=== PATIENT | female | born 1960 | race Caucasian/White ===

== ENCOUNTER 2017-12-06 20:14 | Emergency (ER) | payer OTHER, SELFPAY ==
[2017-12-06] VITALS (9 sets, daily range): BP systolic 87–116; BP diastolic 51–57; PULSE 53–70; RESP 8–18; TEMP 36.6; O2SAT 95–98
--- NOTE | 2017-12-06 20:37 | DI.RPTCT_ITS ---
SYMPTOM/DIAGNOSIS: FALL FROM HORSE NONCONTRAST HEAD CT: No intracranial hemorrhage or skull fracture is seen. The ventricles are normal in size. The mastoid air cells appear clear IMPRESSION: Negative head CT. CT CERVICAL SPINE: There is no evidence of fracture. There is some straightening of the normal cervical lordosis which could be secondary to patient positioning or muscle spasm. There is no paraspinal hematoma. The airway appears intact. IMPRESSION: Negative CT of the cervical spine. FACIAL CT: There is an air fluid level in the right maxillary sinus. No surrounding fractures are seen. The findings could indicate sinusitis. There is no bony erosion. The remaining sinuses appear lear. The orbits and mastoid air cells appear intact. There is no temporomandibular joint dislocation,. IMPRESSION: Right maxillary sinus disease. No evidence of facial fracture.
--- NOTE | 2017-12-06 20:40 | DI.REPORT_ITS ---
SYMPTOM/DIAGNOSIS: FALL FROM HORSE PELVIS AND LEFT HIP: No fracture or dislocation is seen. There is mild bilateral acetabular spurring. The acetabula appear mildly shallow bilaterally. The S-I joints and pubic symphysis appear intact. The sacrum is partially obscured by overlying stool and bowel gas. IMPRESSION: No acute abnormality.
--- NOTE | 2017-12-06 20:40 | DI.REPORT_ITS ---
SYMPTOM/DIAGNOSIS: FALL FROM HORSE LEFT ELBOW: There is soft tissue swelling seen posterior to the proximal ulna. No fracture is identified. IMPRESSION: Posterior soft tissue swelling. LEFT FOREARM: Soft tissue swelling is noted posterior to the proximal ulna. There is a fixation plate in the distal radius. No acute fracture is identified.
[2017-12-06] MEDS: Ondansetron O.D.T. 4 MG TABEF (20:53)
--- NOTE | 2017-12-06 21:14 | DI.RPTCT_ITS ---
SYMPTOM/DIAGNOSIS: FALL FROM HORSE, TRAUMA. CT CHEST, ABDOMEN AND PELVIS: Comparison is made with pelvic ultrasound dated 02 May 2006. Images were performed from the clavicles through the ischial tuberosities after IV and without oral contrast. CHEST CT: The heart and great vessels appear intact. The lungs appear clear. No pneumothorax is seen. No rib or spine fracture is identified. IMPRESSION: Negative Chest CT ABDOMEN AND PELVIC CT: The liver, spleen, pancreas, kidneys, adrenals and gallbladder appear normal. There is no free air or free flui. The bladder is intact. The appendix appears normal. No spine or pelvic fractures are seen. There is a soft tissue hematoma in the lateral left hip. The uterus is enlarged and retroverted. Fibroids were demonstrated on prior ultrasound. There is an area of enhancement on the right side of the uterus which could represent a fibroid. The right ovary appears normal. The left ovary is not well seen due to adjacent non opacified loops of small bowel. IMPRESSION: Soft tissue hematoma in the lateral left hip. No acute intra- abdominal abnormality. Enlarged uterus with fibroids. A pelvic ultrasound could be performed for further evaluation if clinically warranted.
[2017-12-06] MEDS: Normal Saline 1,000 ML 1000 ML IV (22:05)
--- NOTE | 2017-12-06 22:05 | DI.VRAD_ITS ---
EXAM: CT Maxillofacial Without Intravenous Contrast EXAM DATE/TIME: 12/06/2017 9:02 PM CLINICAL HISTORY: 57 years old, female; Injury or trauma; Fall; Initial encounter; Blunt trauma (contusions or hematomas); Eyelid; Not specified TECHNIQUE: Axial computed tomography images of the face without intravenous contrast. Coronal and sagittal reformatted images were created and reviewed. COMPARISON: No relevant prior studies available. FINDINGS: Bones/joints: No acute fracture. Soft tissues: Normal. Orbits: Normal. Globes are unremarkable. Sinuses: Mucosal thickening of the left maxillary sinus with fluid level. IMPRESSION: No acute fracture. Mucosal thickening of the left maxillary sinus with fluid level. Clinical correlation with acute sinusitis. EXAM: CT Head Without Intravenous Contrast EXAM DATE/TIME: 12/06/2017 9:02 PM CLINICAL HISTORY: 57 years old, female; Injury or trauma; Fall; Initial encounter; Blunt trauma (contusions or hematomas); Eyelid; Not specified TECHNIQUE: Axial computed tomography images of the head/brain without intravenous contrast. Coronal and sagittal reformatted images were created and reviewed. COMPARISON: No relevant prior studies available. FINDINGS: Brain: Normal. No hemorrhage. No significant white matter disease. No edema. Ventricles: Normal. No ventriculomegaly. Bones/joints: Normal. No acute fracture. Sinuses: Fluid level in the left maxillary sinus. Mastoid air cells: Normal as visualized. No mastoid effusion. Soft tissues: Normal. IMPRESSION: No acute intracranial abnormality. EXAM: CT Cervical Spine Without Intravenous Contrast EXAM DATE/TIME: 12/06/2017 9:02 PM CLINICAL HISTORY: 57 years old, female; Injury or trauma; Fall; Initial encounter; Blunt trauma (contusions or hematomas); Eyelid; Not specified TECHNIQUE: Axial computed tomography images of the cervical spine without intravenous contrast. Coronal and sagittal reformatted images were created and reviewed. COMPARISON: No relevant prior studies available. FINDINGS: Vertebrae: Straightening of the cervical spine. Discs/Spinal canal/Neural foramina: No spinal stenosis. No neural foraminal narrowing. Soft tissues: Unremarkable. Lung apices: Normal. IMPRESSION: No acute fracture or spondylolisthesis. Dictated and Authenticated by: Liban Trinh MD. Ordering:YOMI SARAVIA MD
[2017-12-06 22:09] LABS: Abs Immature Grans 0.01 k/cumm (0.0-0.09); Absolute Basophil Count 0.02 k/cumm (0.0-0.2); Absolute Eosinophil Count 0.01 k/cumm (0.0-0.7); Absolute Lymphocyte Count 1.07 k/cumm (1.2-3.4); Absolute Monocyte Count 0.79 k/cumm (0.11-0.7); Basophils % 0.2; Eosinophils % 0.1; HCT 33.5 % (36.0-46.0); HGB 11.5 g/dL (12.0-15.5); Immature Grans % 0.1; Lymphocytes % 10.4; Mean Corp. HGB Concentration 34.3 g/dL (32.0-36.0); Mean Corpuscular Hemoglobin 30.9 pg (27.0-33.0); Mean Corpuscular Volume 90.1 fL (80-95); Mean Platelet Volume 9.9 fL (8.0-11.0); Monocytes % 7.7; Neutrophils % 81.5; Platelet Count 238 x1000/uL (130-400); RBC 3.72 m/cumm (4.00-5.20)
--- NOTE | 2017-12-06 22:09 | DI.VRAD_ITS ---
EXAM: XR Left Forearm, 2 Views EXAM DATE/TIME: 12/06/2017 8:42 PM CLINICAL HISTORY: 57 years old, female; Injury or trauma; Fall; Initial encounter; Blunt trauma (contusions or hematomas; Elbow; Left TECHNIQUE: XR Left forearm 2 views. COMPARISON: No relevant prior studies available. FINDINGS: Bones/joints: Status post fixation with metallic plate and pins of the distal radial diaphyseal fracture. No acute fracture. Soft tissues: Soft tissue edema and hematoma of the proximal forearm. IMPRESSION: 1. No acute fracture. 2. Soft tissue edema/hematoma of the proximal forearm. 3. Status post fixation of the distal radial fracture with metallic plate and pins without evidence for hardware loosening or fracture. Dictated and Authenticated by: Liban Trinh MD. Ordering:YOMI SARAVIA MD
--- NOTE | 2017-12-06 22:13 | ED.GENADUL ---
Medical Decision Making - Lab Data Laboratory Tests 12/06/17 21:50 WBC 10.30 RBC 3.72 L Hgb 11.5 L Hct 33.5 L MCV 90.1 MCH 30.9 MCHC 34.3 RDW 12.0 Plt Count 238 MPV 9.9 Immature Gran % 0.1 Neutrophils % 81.5 Lymphocytes % 10.4 Monocytes % 7.7 Eosinophils % 0.1 Basophils % 0.2 Absolute Neutrophils 8.40 H Absolute Lymphocytes 1.07 L Absolute Monocytes 0.79 H Absolute Eosinophils 0.01 Absolute Basophils 0.02 Results reviewed for labs ordered during visit: Yes - Radiology Data Radiology results: pending, report reviewed, image reviewed - Medical Decision Making Patient presenting to the emergency department status post fall from a horse at rapid speed. Patient was helmeted but is having some dizziness and nausea and vomiting. Patient also does have ecchymosis and tenderness to the left orbit. Patient has tenderness swelling and ecchymosis to left elbow and left forearm along with left hip and proximal femur. Palpation of abdomen shows exquisite tenderness to palpation of left lower quadrant. Patient states worsening dizziness with standing up. Given mechanism of injury I do feel that this is a serious trauma and requires head neck and facial CT along with plain film imaging of the left elbow, forearm, left hip and CT imaging of the chest abdomen pelvis. Patient is stable to wait for contrasted imaging of the chest abdomen pelvis but I do feel that it is emergent for patient to have head CT without contrast but otherwise we can wait for labs to check GFR before CT imaging chest abdomen pelvis. Patient offered pain medication and states that she is comfortable but only has exquisite pain and discomfort with movement specifically of the left hip more than anywhere else. Physical exam is unremarkable for any focal neurological deficits or cranial nerve deficits. We will continue to monitor patient's condition. Initial review of CT imaging of the head neck face, left elbow, left forearm, and left hip shows no acute fracture and mostly soft tissue swelling. After review of labs patient has stable labs to go for Ct chest abdomen pelvis. Pending results of CT [facility] patient was transferred to Dr. Davis for final disposition, follow-up, and further treatment or stabilization as needed. History of Present Illness - General Chief complaint: Dizzy/Sync Stated complaint: FELL OFF HORSE, CONCUSSION Time Seen by Provider: 12/06/17 20:16 Source: patient, RN notes reviewed Mode of arrival: ambulatory Limitations: no limitations - History of Present Illness Initial comments: Patient reports around 5 PM she was riding her horse at a high rate of speed when she fell off her horse landing on her left side. Initially she just thought these were mostly bumps and bruises but over the course of time she has had worsening pain of her left elbow/forearm, left hip and pelvis to the point of not being able to stand or bear much weight, and mild headache. Right after the initial fall she did take some Motrin for pain control. Around 7 PM she does state that she attempted to eat some dinner and started having significant amount of dizziness and vomited once and since has felt unwell. Patient denies any loss of consciousness and states that she was helmeted during the event and remembers the entire event. Onset/Timin -: hour(s) Location: left, upper extremity, lower extremity Severity scale (1-10): 7 Quality: sharp Consistency: constant Improves with: rest Worsens with: movement Associated Symptoms: denies other symptoms Treatments Prior to Arrival: NSAID - Related Data Unknown [No Known Home Meds] 12/06/17 Allergies Allergy/AdvReac Type Severity Reaction Status Date / Time Penicillins Allergy Intermediate Hives Unverified 12/06/17 20:41 Review of Systems Constitutional: denies: chills, fever, malaise Eyes: denies: vision change ENT: denies: ear pain Respiratory: denies: shortness of breath Cardiovascular: denies: chest pain, syncope Gastrointestinal: abdominal pain, nausea, vomiting. denies: diarrhea, constipation Genitourinary: denies: dysuria, hematuria Musculoskeletal: as per HPI Skin: change in color (Some bruising on the left side of her body) Neurological: headache, vertigo. denies: weakness, numbness, paresthesias, confusion, abnormal gait Past Medical History - Past Medical History Anemia Surgical history: other (Left wrist surgery) - Social History Smoking status: never smoker Alcohol use: rarely. denies: recent Drug use: none Living Situation: lives with family General Exam - General Limitations: no limitations General appearance: alert, in no apparent distress - Head Head exam: Present: normocephalic - Expanded Head Exam No standard instances Head exam: Present: tenderness of temporal artery (Mild to left ). Absent: abrasion, patel's sign, CSF rhinorrhea, CSF otorrhea - Eye Eye exam: Present: PERRL, EOMI, periorbital swelling (Left orbit with mild ecchymosis), periorbital tenderness (Left orbit) Pupils: Present: normal accommodation - ENT ENT exam: Present: normal orophraynx, mucous membranes moist, TM's normal bilaterally, normal external ear exam - Neck Neck exam: Present: normal inspection, full ROM. Absent: tenderness - Respiratory Respiratory exam: Present: normal lung sounds bilaterally. Absent: respiratory distress, wheezes, rales, rhonchi, stridor - Cardiovascular Cardiovascular Exam: Present: regular rate, normal rhythm, normal heart sounds. Absent: bradycardia, tachycardia, systolic murmur, diastolic murmur, rubs, gallop, clicks - GI/Abdominal GI/Abdominal exam: Present: soft, tenderness (Significant tenderness to palpation of left quadrant with more specific findings of left lower quadrant), guarding (Voluntary to palpation of left lower quadrant), hypoactive bowel sounds. Absent: rebound, rigid, organomegaly, mass, bruit, pulsatile mass - Rectal Rectal exam: Present: deferred - Expanded Upper Extremity Exam Left Shoulder Exam: Present: normal inspection, full ROM. Absent: tenderness, tenderness over AC joint Upper Arm exam: Present: normal inspection. Absent: tenderness Elbow exam: Present: full ROM (Passive range of motion is normal), tenderness, swelling, ecchymosis, pain w/ pronation/supination, tenderness over radial head. Absent: crepidus Forearm Wrist exam: Present: tenderness (To palpation of midshaft and proximal forearm), swelling (Proximal half of 4), ecchymosis. Absent: full ROM, tenderness over anatomical snuff box Hand Wrist exam: Present: normal inspection, full ROM Neuro motor exam: Present: wrist extension intact, thumb opposition intact, thumb IP flexion intact, thumb adduction intact, fingers 2-5 abduction intact Neurosensory exam: Present: 2-point discrimination, radial nerve intact, ulnar nerve intact, median nerve intact Vascular: Present: normal capillary refill, radial pulse (2+). Absent: vascular compromise - Expanded Lower Extremity Exam Left Hip exam: Present: full ROM (Passive range of motion shows significant tenderness with full flexion of hip but not with extension), tenderness (To palpation of lateral hip and pelvis), ecchymosis, pelvic stability. Absent: swelling, external rotation, internal rotation, shortening Upper Leg exam: Present: tenderness (2 proximal femoral head) Knee exam: Present: normal inspection, full ROM. Absent: tenderness Lower Leg exam: Present: normal inspection, full ROM. Absent: tenderness Neuro vascular tendon exam: Present: no vascular compromise. Absent: pulse deficit, motor deficit, sensory deficit, tendon deficit Gait: not tested/not observed - Back Exam Back exam: Absent: CVA tenderness (R), CVA tenderness (L), vertebral tenderness - Neurological Exam Neurological exam: Present: alert, oriented X3, CN II-XII intact. Absent: altered, motor sensory deficit - Skin Skin exam: Present: warm, dry Course Vital Signs - 24 hr 12/06/17 20:25 Temperature 36.6 C Pulse 60 Respiratory 16 Rate Blood Pressure 104/57 Pulse Oximetry 96
--- NOTE | 2017-12-06 22:16 | DI.VRAD_ITS ---
EXAM: XR Left Elbow Complete, 3 or more Views EXAM DATE/TIME: 12/06/2017 8:42 PM CLINICAL HISTORY: 57 years old, female; Injury or trauma; Fall; Initial encounter; Blunt trauma (contusions or hematomas; Elbow; Left TECHNIQUE: XR Left elbow 3 or more views. COMPARISON: No relevant prior studies available. FINDINGS: Bones/joints: No acute fracture or dislocation. Soft tissues: Soft tissue edema and hematoma of the soft tissues of forearm. IMPRESSION: No acute fracture or dislocation. Soft tissue edema/hematoma of the soft tissues of forearm. Dictated and Authenticated by: Liban Trinh MD. Ordering:YOMI SARAVIA MD
--- NOTE | 2017-12-06 22:17 | DI.VRAD_ITS ---
EXAM: XR Left Hip with Pelvis when Performed, 2 or 3 Views EXAM DATE/TIME: 12/06/2017 8:42 PM CLINICAL HISTORY: 57 years old, female; Injury or trauma; Fall; Initial encounter; Blunt trauma (contusions or hematomas); Left; Hip TECHNIQUE: XR Left hip with pelvis when performed, 2 or 3 views COMPARISON: No relevant prior studies available. FINDINGS: Bones/joints: Degenerative changes of bilateral hip joints. Soft tissues: Normal. Vasculature: Phleboliths in the pelvis. IMPRESSION: No acute fracture or dislocation. Degenerative changes of bilateral hip joints. Dictated and Authenticated by: Liban Trinh MD. Ordering:YOMI SARAVIA MD
[2017-12-06 22:23] LABS: ALT 19 U/L (12-78); AST 17 U/L (15-37); Albumin 3.7 g/dL (3.4-5.0); Alkaline Phosphatase 50 U/L (46-116); Anion Gap 9.5 mmol/L (3-11); BUN 14 mg/dL (7-18); Bilirubin, Total 0.6 mg/dL (0.2-1.0); CO2 26.5 mmol/L (21.0-32.0); CREATININE 0.97 mg/dL (0.55-1.02); Calcium 9.5 mg/dL (8.5-10.1); Chloride 104 mmol/L (98-107); Estimated GFR 58.98 (mL/min/1.73m2); Glucose 138 mg/dL (70-100); Potassium 3.8 mmol/L (3.5-5.1); Sodium 140 mmol/L (136-145); Total Protein 6.4 g/dL (6.4-8.2)
[2017-12-06 22:35] LABS: PTT Activated 19.9 sec (21.0-31.4)
[2017-12-06 22:45] LABS: INR 1.1 (1.0-3.5); Prothrombin Time 11.1 sec (9.3-10.8)
[2017-12-06] MEDS: Omnipaque 350 MG/ML 100 ML BTL IJ (23:05)
--- NOTE | 2017-12-06 23:33 | DI.VRAD_ITS ---
EXAM: CT Chest With Intravenous Contrast EXAM DATE/TIME: 12/06/2017 9:16 PM CLINICAL HISTORY: 57 years old, female; Injury or trauma; Fall; Initial encounter; Blunt; Generalized; Blunt trauma (contusions or hematomas) TECHNIQUE: Axial computed tomography images of the chest with intravenous contrast. Coronal and sagittal reformatted images were created and reviewed. COMPARISON: CR - LEFT HIP COMPLETE \T\ AP PELVIS 2017-12-06 21:08 FINDINGS: Lungs: Normal. No consolidation. No masses. Pleural space: Normal. No pneumothorax. No pleural effusion. Heart: Normal. No cardiomegaly. No pericardial effusion. Aorta: Normal. No aortic aneurysm. Lymph nodes: Unremarkable. No enlarged lymph nodes. Bones/joints: Unremarkable. No acute fracture. Soft tissues: Unremarkable. IMPRESSION: No acute abnormality. EXAM: CT Abdomen and Pelvis With Intravenous Contrast EXAM DATE/TIME: 12/06/2017 9:16 PM CLINICAL HISTORY: 57 years old, female; Injury or trauma; Fall; Initial encounter; Blunt; Generalized; Blunt trauma (contusions or hematomas) TECHNIQUE: Axial computed tomography images of the abdomen and pelvis with intravenous contrast. Coronal and sagittal reformatted images were created and reviewed. COMPARISON: CR - LEFT HIP COMPLETE \T\ AP PELVIS 2017-12-06 21:08 FINDINGS: Lower thorax: No acute findings. ABDOMEN: Liver: Normal. No mass. Gallbladder and bile ducts: Normal. No calcified stones. No ductal dilation. Pancreas: Normal. No ductal dilation. Spleen: Normal. No splenomegaly. Adrenals: Normal. No mass. Kidneys and ureters: Bilateral subcentimeter renal cysts. Stomach and bowel: Unremarkable. Appendix: Appendix is unremarkable. PELVIS: Bladder: Unremarkable as visualized. Reproductive: There is a large heterogeneous lesion in the pelvis measuring 6.8 x 5.6 x 5.1 cm which cannot be from the uterus or the adnexa. There is a enhancing mural nodule in region. ABDOMEN and PELVIS: Intraperitoneal space: Normal. No free air. No significant fluid collection. Bones/joints: No acute fracture. No dislocation. Soft tissues: There is hematoma of the left lateral thigh and pelvis. It measures 4.5 x 3.5 x 12.1 cm(APXTXCC). Vasculature: Normal. No abdominal aortic aneurysm. Lymph nodes: Normal. No enlarged lymph nodes. IMPRESSION: 1. Large subcutaneous hematoma of the left lateral thigh and pelvis. 2. Heterogeneous lesion in the pelvis which cannot be from the uterus or the adnexa with enhancing mural nodule. Ultrasound or MRI with and without contrast is recommended for evaluation. Dictated and Authenticated by: Liban Trinh MD. Ordering:YOMI SARAVIA MD
--- NOTE | 2017-12-06 23:46 | DI.VRAD_ITS ---
Addendum created by Liban Trinh DO on 12/06/2017 11:46:26 PM EDT This is an addendum to prior report on CT abdomen and pelvis dated 12/06/2017. The impression should read: Heterogeneous lesion in the pelvis which cannot be from the uterus or the adnexa with enhancing mural nodule. Ultrasound or MRI with and without contrast is recommended for evaluation as an non-emergent basis. Findings were discussed with Dr Davis at 12/06/2017 11:45 PM EDT. Initial report created on 12/06/2017 11:33:33 PM EDT EXAM: CT Chest With Intravenous Contrast EXAM DATE/TIME: 12/06/2017 9:16 PM CLINICAL HISTORY: 57 years old, female; Injury or trauma; Fall; Initial encounter; Blunt; Generalized; Blunt trauma (contusions or hematomas) TECHNIQUE: Axial computed tomography images of the chest with intravenous contrast. Coronal and sagittal reformatted images were created and reviewed. COMPARISON: CR - LEFT HIP COMPLETE \T\ AP PELVIS 2017-12-06 21:08 FINDINGS: Lungs: Normal. No consolidation. No masses. Pleural space: Normal. No pneumothorax. No pleural effusion. Heart: Normal. No cardiomegaly. No pericardial effusion. Aorta: Normal. No aortic aneurysm. Lymph nodes: Unremarkable. No enlarged lymph nodes. Bones/joints: Unremarkable. No acute fracture. Soft tissues: Unremarkable. IMPRESSION: No acute abnormality. EXAM: CT Abdomen and Pelvis With Intravenous Contrast EXAM DATE/TIME: 12/06/2017 9:16 PM CLINICAL HISTORY: 57 years old, female; Injury or trauma; Fall; Initial encounter; Blunt; Generalized; Blunt trauma (contusions or hematomas) TECHNIQUE: Axial computed tomography images of the abdomen and pelvis with intravenous contrast. Coronal and sagittal reformatted images were created and reviewed. COMPARISON: CR - LEFT HIP COMPLETE \T\ AP PELVIS 2017-12-06 21:08 FINDINGS: Lower thorax: No acute findings. ABDOMEN: Liver: Normal. No mass. Gallbladder and bile ducts: Normal. No calcified stones. No ductal dilation. Pancreas: Normal. No ductal dilation. Spleen: Normal. No splenomegaly. Adrenals: Normal. No mass. Kidneys and ureters: Bilateral subcentimeter renal cysts. Stomach and bowel: Unremarkable. Appendix: Appendix is unremarkable. PELVIS: Bladder: Unremarkable as visualized. Reproductive: There is a large heterogeneous lesion in the pelvis measuring 6.8 x 5.6 x 5.1 cm which cannot be from the uterus or the adnexa. There is a enhancing mural nodule in region. ABDOMEN and PELVIS: Intraperitoneal space: Normal. No free air. No significant fluid collection. Bones/joints: No acute fracture. No dislocation. Soft tissues: There is hematoma of the left lateral thigh and pelvis. It measures 4.5 x 3.5 x 12.1 cm(APXTXCC). Vasculature: Normal. No abdominal aortic aneurysm. Lymph nodes: Normal. No enlarged lymph nodes. IMPRESSION: 1. Large subcutaneous hematoma of the left lateral thigh and pelvis. 2. Heterogeneous lesion in the pelvis which cannot be from the uterus or the adnexa with enhancing mural nodule. Ultrasound or MRI with and without contrast is recommended for evaluation. Dictated and Authenticated by: Liban Trinh MD. Ordering:YOMI SARAVIA MD
--- NOTE | 2017-12-07 00:34 | ED.FU_ITS ---
Disposition Clinical Impression: Traumatic hematoma of left thigh, Multiple contusions, Concussion Disposition: HOME Condition: Good Instructions: Concussion (ED), Hematoma (ED) Additional Instructions: You should use ibuprofen or acetaminophen for pain. Ice on and off for the next few days especially in the left thigh. May switch over to heat after that again especially in the left thigh. Concussion precautions with adequate rest and follow-up with primary care. Return to ED for worsening headaches, persistent vomiting, confusion, neurologic changes,. Referrals: Alex Valenzuela DO [Primary Care Provider] - Medical Decision Making - Lab Data Laboratory Tests 12/06/17 12/06/17 12/06/17 21:50 21:50 21:50 WBC 10.30 RBC 3.72 L Hgb 11.5 L Hct 33.5 L MCV 90.1 MCH 30.9 MCHC 34.3 RDW 12.0 Plt Count 238 MPV 9.9 Immature Gran % 0.1 Neutrophils % 81.5 Lymphocytes % 10.4 Monocytes % 7.7 Eosinophils % 0.1 Basophils % 0.2 Absolute Neutrophils 8.40 H Absolute Lymphocytes 1.07 L Absolute Monocytes 0.79 H Absolute Eosinophils 0.01 Absolute Basophils 0.02 PT 11.1 H INR 1.1 APTT 19.9 L Sodium 140 Potassium 3.8 Chloride 104 Carbon Dioxide 26.5 Anion Gap 9.5 BUN 14 Creatinine 0.97 Estimated GFR/1.73 m2 58.98 Glucose 138 H Calcium 9.5 Total Bilirubin 0.6 AST 17 ALT 19 Alkaline Phosphatase 50 Total Protein 6.4 Albumin 3.7 Patient ABO/Rh Antibody Screen 12/06/17 21:50 WBC RBC Hgb Hct MCV MCH MCHC RDW Plt Count MPV Immature Gran % Neutrophils % Lymphocytes % Monocytes % Eosinophils % Basophils % Absolute Neutrophils Absolute Lymphocytes Absolute Monocytes Absolute Eosinophils Absolute Basophils PT INR APTT Sodium Potassium Chloride Carbon Dioxide Anion Gap BUN Creatinine Estimated GFR/1.73 m2 Glucose Calcium Total Bilirubin AST ALT Alkaline Phosphatase Total Protein Albumin Patient ABO/Rh A Positive Antibody Screen Negative Results reviewed for labs ordered during visit: Yes - Radiology Data Radiology results: report reviewed - Medical Decision Making Patient laboratory studies unremarkable other than mild anemia which she has history of. CT scan of the head/face/cervical spine negative for traumatic injury. X-ray of the left arm and left hip are negative for fracture. CT scan of the chest/abdomen/pelvis negative for traumatic injury other than a left thigh hematoma. It was noted that patient had a heterogeneous lesion arising out of the pelvis not clear on CAT scan whether uterine or adnexal. In discussing this with the patient, she has known fibroids which have been evaluated. The size described on CAT scan is essentially the same size that she has had told to her in the past. We discussed concussion which she probably has given her symptoms. We discussed the importance of rest. We discussed use of ice to help with a hematoma for the next few days followed by heat to help dissolve the clot over time. Acetaminophen and/or ibuprofen for pain as needed. Return to ED for any worsening symptoms. Follow-up with primary care. Care Signed Out By:: Roberto Melara - Vital Signs Recent Vitals - 8H: Vital Signs - 8 hr 12/06/17 12/06/17 12/06/17 20:25 22:05 22:07 Temperature 97.9 F Pulse 60 54 L Respiratory 16 18 10 L Rate Blood Pressure 104/57 87/51 Pulse Oximetry 96 95 97 12/06/17 12/06/17 12/06/17 22:10 22:20 22:30 Temperature Pulse Respiratory 8 L 9 L 9 L Rate Blood Pressure Pulse Oximetry 95 98 97 12/06/17 12/06/17 12/06/17 22:40 23:00 23:01 Temperature Pulse 70 Respiratory 12 14 Rate Blood Pressure 116/52 Pulse Oximetry 95 96 97 - Continuation of Care Continuation of Care Plan: Patient had presented status post being thrown from a horse earlier in the day. She was complaining of dizziness, nausea and vomiting. She did not have a loss of consciousness. She had bruising to the left side of her face, left arm , left thigh. She had been put in for CT scans and x-rays as well as labs.
[2017-12-07 01:10] VITALS: BP 118/56; PULSE 74; RESP 18; O2SAT 97
== END 2017-12-07 00:52 | disposition home or self-care (01) ==
PROVIDERS: Nurse Practitioner Family; Emergency Provider Emergency Medicine; PCP Emergency Medicine
DX: S70.12XA Contusion of left thigh, initial encounter (principal); S06.0X0A Concussion without loss of consciousness, initial encounter; S00.83XA Contusion of other part of head, initial encounter; S40.022A Contusion of left upper arm, initial encounter; V80.010A Animal-rider injured by fall from or being thrown from horse in noncollision accident, initial encounter; Y93.52 Activity, horseback riding
CPT/HCPCS: 36415; 74177; 80053; 86850; 86900; 86901; 96360; 99285; 70450; 70486; 71260; 72125; 73080; 73090; 73502; 85025; 85610; 85730; J3490